=== PATIENT | female | born 1935 | race African-American/Black ===

== ENCOUNTER 2017-05-17 20:08 | Emergency (ER) | payer OTHER, MEDICAID ==
[~2017-05-17] VITALS: Ht 157.5 cm; Wt 102.0 kg
[2017-05-17] MEDS ORDERED: ACETAMINOPHEN 325MG TABLET PO ONE (22:45)
[2017-05-18 01:26] VITALS: BP 130/65
== END 2017-05-18 02:18 | disposition home or self-care (01) ==
LOC: ER 20:08
DX: M25.551 Pain in right hip (principal); M79.604 Pain in right leg; I12.0 Hypertensive chronic kidney disease with stage 5 chronic kidney disease or end stage renal disease; E11.22 Type 2 diabetes mellitus with diabetic chronic kidney disease; N18.6 End stage renal disease; Z99.2 Dependence on renal dialysis; E78.00 Pure hypercholesterolemia, unspecified
CPT/HCPCS: 73502; 73552; 99284

== ENCOUNTER 2018-03-09 18:07 | Inpatient (IN) | payer OTHER, MEDICAID ==
[~2018-03-09] VITALS: Ht 162.6 cm; Wt 121.6 kg
[2018-03-09] MEDS ORDERED: SODIUM CHLORIDE 0.9% 1,000 ML IV ONE (19:21)
[2018-03-09] MEDS ORDERED: ONDANSETRON HCL 4MG/2ML VIAL IV STA (19:21)
[2018-03-09 20:40] LABS: BASOPHILS % 0.5 % (0.0-2.0); EOSINOPHILS % 0.5 % (0.0-5.0); HEMOGLOBIN. 9.2 g/dL (12.0-16.0); LYMPHOCYTES % 8.6 % (20.0-50.0); MEAN CORPUSCULAR HEMOGLOBIN 26.5 pg (28.0-32.0); MONOCYTES % 3.6 % (2.0-8.0); NEUTROPHILS % 86.8 % (40.0-76.0); PLATELET 180 x1000/uL (130-400); RED BLOOD CELL COUNT 3.46 mill/uL (4.2-5.4); RED CELL DISTRIBUTION WIDTH 16.4 % (11.6-14.6)
[2018-03-09 20:41] LABS: CHLORIDE 107 mEq/L (98-107); INR 1.1; PROTHROMBIN TIME 10.8 sec (9.1-11.1)
[2018-03-09 20:47] LABS: AMMONIA 26 uMol/L (<32)
[2018-03-10] VITALS (8 sets, daily range): BP systolic 109–142; BP diastolic 37–60
[2018-03-10] MEDS ORDERED: ASPI-986 PO (00:25)
[2018-03-10] MEDS ORDERED: ACETAMINOPHEN 325MG TABLET PO PRN (01:30)
[2018-03-10] MEDS ORDERED: LEVOFLOXACIN 250MG PREMIX 50 ML IV SCH (01:30)
[2018-03-10] MEDS ORDERED: DEXTROSE 50% WATER 50ML SYRINGE IV PRN (01:30)
[2018-03-10] MEDS: SODIUM CHLORIDE 0.45% 1,000 ML IV SCH (02:05)
[2018-03-10] MEDS: LEVOFLOXACIN 250MG PREMIX 50 ML IV SCH (04:31)
[2018-03-10] MEDS: HYDROCODONE/ACETAMINOPHEN 5/325MG TABLET PO PRN (05:12)
[2018-03-10] MEDS: PANTOPRAZOLE 40MG DR TABLET PO SCH (06:25)
[2018-03-10] MEDS: BLOOD SUGAR DIAGNOSTIC STRIP TEST SCH ×4 (06:25→20:24)
[2018-03-10] MEDS: MORPHINE SULFATE 4 MG/ML CPJ (NOT FOR IM USE) IV SCH ×2 (06:45→08:16)
[2018-03-10] MEDS: INSULIN LISPRO 100 UNITS/ML SUBCUT SCH ×4 (07:50→21:00)
[2018-03-10] MEDS: ASPIRIN 81MG TABLET PO SCH (08:15)
[2018-03-10] MEDS: ENOXAPARIN 30MG/0.3ML SYR SUBCUT SCH ×2 (08:16→21:34)
[2018-03-10 08:42] LABS: CLARITY URINE TURBID (CLEAR); COLOR URINE YELLOW (YELLOW); KETONES URINE NEGATIVE (NEGATIVE); LEUKOCYTE ESTERASE URINE 3+ (NEGATIVE); NITRITE URINE NEGATIVE (NEGATIVE); OCCULT BLOOD URINE 2+ (NEGATIVE); PROTEIN URINE 1+ (NEGATIVE); SPECIFIC GRAVITY URINE 1.008 (1.005-1.030); UROBILINOGEN URINE 0.2 E.U./dL (0.2-1.0)
[2018-03-10 12:31] LABS: HEMATOCRIT 25.4 % (36.0-48.0); HEMOGLOBIN 8.3 g/dL (12.0-16.0); MEAN CORPUSCULAR HEMOGLOBIN 27.3 pg (28.0-32.0); MEAN CORPUSCULAR VOLUME 83.3 fL (81.0-99.0); PLATELET 186 x1000/uL (130-400); RED BLOOD CELL COUNT 3.05 mill/uL (4.2-5.4); RED CELL DISTRIBUTION WIDTH 16.1 % (11.6-14.6)
[2018-03-10 13:19] LABS: BG FRACTION INSPIRED OXYGEN 21; BG HCO3 ACT 9.9 mmol/L (22.0-26.0); BG PCO2 19.9 mmHg (35.0-45.0); BG PH 7.316 (7.350-7.450); BG PO2 45.7 mmHg (75.0-100.0); BG SAMPLE SITE RIGHT RADIAL; BG TOTAL HEMOGLOBIN < 4.5 g/dL (12.0-18.0); BG VENT MODE ROOM AIR
[2018-03-10] MEDS ORDERED: FURO80TA3 PO (18:46)
[2018-03-10] MEDS ORDERED: PROP50TA3 PO (18:46)
[2018-03-10] MEDS ORDERED: CARV12.545 PO (18:46)
[2018-03-10] MEDS ORDERED: METO10TA8 PO (18:46)
[2018-03-10] MEDS ORDERED: METH10TA7 PO (18:46)
[2018-03-10] MEDS ORDERED: TICA90TA PO (18:46)
[2018-03-10 18:58] LABS: BG BASE EXCESS -1.8 mmol/L (-2.0-2.0); BG CARBOXYHEMOGLOBIN 0.3 % (0.5-1.5); BG DEOXYHEMOGLOBIN 4.6 % (0.0-5.0); BG FRACTION INSPIRED OXYGEN 21; BG HCO3 ACT 23.1 mmol/L (22.0-26.0); BG METHEMOGLOBIN 0.2 % (0.0-1.5); BG OXYGEN SATURATION 95.4 % (92.0-98.5); BG OXYHEMOGLOBIN 94.9 % (94.0-97.0); BG PCO2 39.5 mmHg (35.0-45.0); BG PH 7.384 (7.350-7.450); BG PO2 80.2 mmHg (75.0-100.0); BG SAMPLE SITE RIGHT BRACHIAL; BG TOTAL HEMOGLOBIN 9.1 g/dL (12.0-18.0); BG VENT MODE ROOM AIR
[2018-03-10 21:59] LABS: CREATINE KINASE MB FRACTION 2.6 ng/mL (0.5-3.6)
[2018-03-11] VITALS: BP 110/45
[2018-03-11] MEDS: SODIUM CHLORIDE 0.45% 1,000 ML IV SCH (02:38)
[2018-03-11] MEDS: HYDROCODONE/ACETAMINOPHEN 5/325MG TABLET PO PRN (03:21)
[2018-03-11 04:00] VITALS: BP 115/49
[2018-03-11] MEDS: LEVOFLOXACIN 250MG PREMIX 50 ML IV SCH (05:24)
[2018-03-11] MEDS: BLOOD SUGAR DIAGNOSTIC STRIP TEST SCH ×2 (06:35→12:20)
[2018-03-11] MEDS: PANTOPRAZOLE 40MG DR TABLET PO SCH (06:35)
[2018-03-11 08:00] VITALS: BP 117/45
[2018-03-11] MEDS: ASPIRIN 81MG TABLET PO SCH (09:00)
[2018-03-11] MEDS: ENOXAPARIN 30MG/0.3ML SYR SUBCUT SCH (09:00)
[2018-03-11] MEDS: INSULIN LISPRO 100 UNITS/ML SUBCUT SCH ×2 (09:02→12:39)
[2018-03-11 12:00] VITALS: BP_SYST 107; BP_SYST 151; BP_DIAS 59; BP_DIAS 79
[2018-03-11 14:05] LABS: BASOPHILS % 0.5 % (0.0-2.0); EOSINOPHILS % 2.8 % (0.0-5.0); HEMATOCRIT. 26.7 % (36.0-48.0); HEMOGLOBIN. 8.8 g/dL (12.0-16.0); LYMPHOCYTES % 22.2 % (20.0-50.0); MEAN CORPUSCULAR HEMOGLOBIN 27.7 pg (28.0-32.0); MEAN PLATELET VOLUME 10.2 fl (7.4-10.4); MONOCYTES % 8.7 % (2.0-8.0); NEUTROPHILS % 65.8 % (40.0-76.0); PLATELET 184 x1000/uL (130-400); RED BLOOD CELL COUNT 3.18 mill/uL (4.2-5.4); RED CELL DISTRIBUTION WIDTH 16.5 % (11.6-14.6)
[2018-03-11 16:00] VITALS: BP 151/49
[2018-03-11] MEDS ORDERED: INSU100I28 SQ (16:34)
[2018-03-11] MEDS ORDERED: INSU100I7 SQ (16:34)
[2018-03-11] MEDS ORDERED: INSU100C6 SQ (16:34)
[2018-03-11 16:38] VITALS: BP 107/79
== END 2018-03-11 21:00 | disposition home or self-care (01) | DRG 637 ==
LOC: ER 18:21 → OBSVTOIN 21:35 → 6WST 21:35 → EDBEDREQ 21:37 → EDBEDREQTM 21:37 → ENRESERV 22:01
PROVIDERS: ADMIT Internal Medicine; ATTEND Internal Medicine
DX: E11.649 Type 2 diabetes mellitus with hypoglycemia without coma (principal); G93.41 Metabolic encephalopathy; N39.0 Urinary tract infection, site not specified; I13.0 Hypertensive heart and chronic kidney disease with heart failure and stage 1 through stage 4 chronic kidney disease, or unspecified chronic kidney disease; Z68.42 Body mass index [BMI] 45.0-49.9, adult; E11.22 Type 2 diabetes mellitus with diabetic chronic kidney disease; D64.9 Anemia, unspecified; I50.9 Heart failure, unspecified; R09.02 Hypoxemia; N18.4 Chronic kidney disease, stage 4 (severe); E66.9 Obesity, unspecified; E78.5 Hyperlipidemia, unspecified; I25.2 Old myocardial infarction; Z79.4 Long term (current) use of insulin
CPT/HCPCS: 36415; 36600; 70450; 71045; 76770; 80048; 80053; 80061; 81003; 82140; 82375; 82550; 82553; 82805; 82962; 83036; 83605; 84443; 84484; 85025; 85027; 85610; 87040; 87077; 87086; 87186; 93005; 96374; 97162; 99291; J1650; J1815; J1956; J2270; J2405; J7030; A4315